=== PATIENT | female | born 1940 | race Caucasian/White ===

== ENCOUNTER 2020-10-17 19:57 | Emergency (ER) | payer MEDICARE ==
[~2020-10-17] VITALS: Ht 165.1 cm; Wt 69.1 kg
[2020-10-17 20:05] VITALS: BP 158/55; Ht 165.1 cm; Wt 69.1 kg
[2020-10-17] MEDS ORDERED: SYNTHROID88 MCG PO (20:06)
== END 2020-10-17 20:49 | disposition home or self-care (01) ==
LOC: D.ER 19:57
DX: S91.155A Open bite of left lesser toe(s) without damage to nail, initial encounter (principal); W57.XXXA Bitten or stung by nonvenomous insect and other nonvenomous arthropods, initial encounter; Y93.9 Activity, unspecified; Y92.9 Unspecified place or not applicable